=== PATIENT | male | born 1995 | race Two or more races ===

== ENCOUNTER 2020-06-02 14:16 | Inpatient (IN) ==
[2020-06-02] MEDS ORDERED: ONDANSETRON 4 MG/2 ML VIAL ONE (14:27)
[2020-06-02 14:41] LABS: Basophils % 0.3 % (0.0-0.8); Eosinophils % 0.2 % (0.00-10.9); Hematocrit 44.8 VOL% (42.0-52.0); Immature Granulocytes % 0.3 %; Immature Granulocytes Absolute 0.04 #; Lymphocytes # 6.6 10*3/uL (1.4-4.0); Lymphocytes % 46.8 % (21.2-54.2); Mean Corpuscular HGB Conc 33.5 GM/DL (32-36); Mean Corpuscular Volume 85.5 FL (87-102); Mean Platelet Volume 10.2 FL (9.6-12.0); Monocytes % 8.2 % (1.7-12.7); Neutrophils % 44.2 % (38.7-73.9); Platelet Count 309 T/CUMM (130-400); Red Blood Count 5.24 MC/CUMM (3.8-5.5); Red Cell Distribution Width 11.9 % (9.3-17.3); White Blood Count 14.2 T/CUMM (4-12)
[2020-06-02] MEDS ORDERED: NALOXONE 4 MG in SODIUM CHLORIDE 0.9% 90 ML IV SCH (15:00)
[2020-06-02 15:12] LABS: Albumin 4.6 G/DL (3.4-5.0); Bilirubin,Total 0.5 MG/DL (0.2-1.0); Calcium 9.6 MG/DL (8.5-10.1); Osmolality,Calculated 280.5 MOS/KG (273-304)
[2020-06-02] MEDS ORDERED: NALOXONE 0.4 MG/ML VIAL IV STA (15:12)
[2020-06-02] MEDS ORDERED: ONDANSETRON 4 MG/2 ML VIAL IV STA (15:12)
[2020-06-02] MEDS ORDERED: amLODIPine 10 MG TABLET ONE (15:40)
[2020-06-02] MEDS ORDERED: amLODIPine 5 MG TABLET PO STA (15:40)
[2020-06-02] MEDS ORDERED: NALOXONE 0.4 MG/ML VIAL ONE (16:14)
[2020-06-02] MEDS ORDERED: LACTATED RINGERS 2,000 ML IV ONE (16:15)
[2020-06-02 16:26] LABS: Bilirubin,Urine Negative (Negative); Blood, Urine Negative (Negative); Glucose,Urine (UA) 50 mg/dL (Negative); Hyaline Casts,Urine 1 /LPF (0-3); Ketones,Urine Negative (Negative); Mucus,Urine Occasional /LPF (Occasional); Nitrite,Urine Negative (Negative); Protein,Urine 30 MG/DL; RBC,Urine 1 /HPF (0-4); Urine Appearance CLEAR (Clear); Urine Color Yellow (Yellow); Urine Specific Gravity 1.014 (1.001-1.035); Urine Urobilinogen < 2.0 EU/DL (0.2-1.0); WBC,Urine <1 /HPF (0-6)
[2020-06-02 16:30] LABS: Barbiturates Screen,Urine Negative (Negative); Benzodiazepines Screen,Urine Negative (Negative); Cannabinoid Screen,Urine Positive (Negative); Opiate Screen,Urine Positive (Negative); Phencyclidine Screen,Urine Negative (Negative)
[2020-06-02] MEDS ORDERED: ONDANSETRON 4 MG/2 ML VIAL IV PRN (16:32)
[2020-06-02] MEDS ORDERED: NICOTINE 21 MG/24 HR PATCH TRANSDERM PRN (16:32)
[2020-06-02] MEDS ORDERED: ACETAMINOPHEN 325 MG TABLET PO PRN (16:32)
[2020-06-02] MEDS ORDERED: ALUMINUM/MAGNES/SIMETH MAX STR 30 ML UDCUP PO PRN (16:32)
[2020-06-02] MEDS ORDERED: ALBUTEROL 2.5 MG/3 ML NEB RESP TX PRN (16:32)
[2020-06-02] MEDS ORDERED: DIAZEPAM 10 MG/2 ML SYRINGE IM STA (16:36)
[2020-06-02] MEDS ORDERED: NIFEdipine 10 MG CAPSULE PO PRN (16:37)
[2020-06-02] MEDS ORDERED: PANTOPRAZOLE 40 MG TABLET PO SCH (17:00)
[2020-06-02] MEDS ORDERED: cloNIDine 0.3 MG/24 HR PATCH TRANSDERM SCH (21:00)
[2020-06-02] MEDS ORDERED: ENOXAPARIN 40 MG/0.4 ML SYRINGE SUBCUT SCH (21:00)
[2020-06-02] MEDS: DIAZEPAM 5 MG TABLET PO SCH (21:00)
[2020-06-03] MEDS: DIAZEPAM 5 MG TABLET PO SCH ×4 (01:20→12:50)
[2020-06-03 04:25] LABS: ABG Base Excess 2.2 MMOL/L (-2.5-2.5); ABG HCO3 26.3 MMOL/L (20-26); ABG Oxygen Saturation 98.9 % (95-100); ABG PCO2 46.9 MM HG (35-48); ABG PH 7.384 (7.35-7.45); ABG TCO2 24.2 MMOL/L (23-27); Allen Test Positive; Pt O2 Delivery Device Room Air
[2020-06-03 06:49] LABS: Basophils % 0.3 % (0.0-0.8); Eosinophils % 0.3 % (0.00-10.9); Hematocrit 40.4 VOL% (42.0-52.0); Immature Granulocytes % 0.1 %; Immature Granulocytes Absolute 0.01 #; Lymphocytes # 1.7 10*3/uL (1.4-4.0); Lymphocytes % 23.2 % (21.2-54.2); Mean Corpuscular HGB Conc 34.7 GM/DL (32-36); Mean Corpuscular Volume 83.5 FL (87-102); Mean Platelet Volume 10.8 FL (9.6-12.0); Monocytes % 6.3 % (1.7-12.7); Neutrophils % 69.8 % (38.7-73.9); Platelet Count 247 T/CUMM (130-400); Red Blood Count 4.84 MC/CUMM (3.8-5.5); White Blood Count 7.1 T/CUMM (4-12)
[2020-06-03 07:16] LABS: Calcium 8.9 MG/DL (8.5-10.1); Osmolality,Calculated 277.5 MOS/KG (273-304)
[2020-06-03] MEDS ORDERED: POTASSIUM CHLORIDE 20 MEQ TABLET PO ONE (09:00)
[2020-06-03 11:56] VITALS: BP 138/58
[2020-06-03 12:27] LABS: Albumin 3.6 G/DL (3.4-5.0); Bilirubin,Total 0.8 MG/DL (0.2-1.0); Calcium 8.7 MG/DL (8.5-10.1); Osmolality,Calculated 267.1 MOS/KG (273-304); Total Protein 7.2 G/DL (6.4-8.3)
== END 2020-06-03 13:27 | disposition home or self-care (01) | DRG 917 ==
LOC: N.ED 14:16 → N.EDINP 16:08 → SUATTDRO 16:08 → N.5E 06-03 01:22
PROVIDERS: ADMIT Internal Medicine; ATTEND Internal Medicine Geriatric Medicine